=== PATIENT | female | born 1970 | race Caucasian/White ===

== ENCOUNTER 2018-05-27 11:41 | Inpatient (IN) ==
[2018-05-27 12:19] LABS: Basophils % 0.2 % (0.1-2.0); Eosinophils # 0.3 K/mm3 (0.0-0.4); Eosinophils % 1.7 % (0.1-12.0); Lymphocytes # 2.3 K/mm3 (0.7-4.5); Mean Corpuscular HGB Conc 23.2 g/dL (31.8-35.4); Mean Corpuscular Hemoglobin 13.9 pg (27.0-31.2); Mean Corpuscular Volume 59.9 fl (81-99); Mean Platelet Volume 5.8 fl (7.4-10.4); Monocytes # 0.5 K/mm3 (0.1-1.0); Monocytes % 2.6 % (1.7-9.3); Neutrophils # 14.8 K/mm3 (1.8-7.8); Neutrophils % 82.4 % (37.0-80.0); Red Blood Count 3.56 M/mm3 (4.20-5.40); Red Cell Distribution Width 22.2 % (11.5-17.5)
[2018-05-27 12:26] LABS: Albumin Level 2.9 gm/dL (3.4-5.0); Albumin/Globulin Ratio 0.5 (1.1-1.8); Bilirubin,Total 0.4 mg/dL (0.2-1.0); Calcium 9.1 mg/dL (8.5-10.1); Globulin 5.3 gm/dl (1.3-3.2); Total Protein,Serum 8.2 gm/dL (6.4-8.2)
--- NOTE | 2018-05-27 12:34 | Emergency Department Note ---
ED Disposition Clinical Impression: Pelvic mass Disposition: Admitted As Inpatient Condition on Discharge: Fair Instructions: DI for Acute Abdomen Referrals: Sonny Colmenares MD [Primary Care Provider] - Time of Disposition: 15:33 - Critical Care Critical Care Time: No Attestation: On 05/27/18, the high probability of a clinically significant, sudden or life threatening deterioration of the following system(s) required my full and direct attention, intervention and personal management. The time I documented below is in addition to time spent performing reported procedures but includes the following listed in this critical care notation. Medical Decision Making - Yehuda Inquiry Pt receiving controlled substance: No Vital Signs: 05/27/18 11:45 05/27/18 13:22 Temperature 98.0 F Temperature Source Oral Pulse Rate [Left Radial] 110 H 98 H Respiratory Rate 15 Blood Pressure [Right Arm] 151/77 H 125/66 Blood Pressure Mean [Right Arm] 101 85 Blood Pressure Source [Right Arm] Automatic Cuff Automatic Cuff Blood Pressure Position [Right Arm] Sitting Sitting 02 Sat by Pulse Oximetry 98 100 Oxygen Delivery Method Room Air Room Air - Lab Data Lab results reviewed: Yes: I reviewed the patient's lab results. Lab Results 05/27/18 12:05: WBC 18.0 H, RBC 3.56 L, Hgb 4.9 L*, Hct 21.3 L*, MCV 59.9 L, MCH 13.9 L*, MCHC 23.2 L, RDW 22.2 H, Plt Count 1373 H*, MPV 5.8 L, Neut % (Auto) 82.4 H, Lymph % (Auto) 13.0, [place] % (Auto) 2.6, Eos % (Auto) 1.7, Baso % (Auto) 0.2, Neut # (Auto) 14.8 H, Lymph # (Auto) 2.3, [place] # (Auto) 0.5, Eos # (Auto) 0.3, Baso # (Auto) 0.0, Total Counted 100, Neutrophils % (Manual) 88 H, Lymphocytes % (Manual) 8 L, Monocytes % (Manual) 2, Eosinophils % (Manual) 2, Platelet Estimate Marked increase, Hypochromasia 3+, Anisocytosis 3+, Microcytosis 3+, ESR > 120 H 05/27/18 12:05: Sodium 137, Potassium 5.0, Chloride 101, Carbon Dioxide 26, Anion Gap 15.0, BUN 11, Creatinine 0.86, Estimated Creat Clear 122, Estimated GFR 71, Est GFR ( Amer) 86, Glucose 140 H, Calcium 9.1, Total Bilirubin 0.4, AST 13 L, ALT 9 L, Alkaline Phosphatase 101, C-Reactive Protein 13.0 H, Total Protein 8.2, Albumin 2.9 L, Globulin 5.3 H, Albumin/Globulin Ratio 0.5 L, Amylase 45, Lipase 85 05/27/18 12:05: PT 11.2, INR 1.09, APTT 29.5 Result diagrams: 05/27/18 12:05 05/27/18 12:05 Orders (Tests/Meds): ED MEDICATIONS Discontinued Medications Generic Name Dose Route Start Last Admin Trade Name Freq PRN Reason Stop Dose Admin Diatrizoate Meglum/Diatrizoate Sod 30 ml 05/27/18 12:09 05/27/18 12:13 Gastrografin 66%-10% 30ml PO 05/27/18 12:10 30 ml ONCE ONE Administration Iopamidol 75 ml 05/27/18 14:36 05/27/18 14:39 [id number]; 75ml Vial IV 05/27/18 14:37 75 ml ONCE ONE Administration Protocol Sodium Chloride 10 ml 05/27/18 14:36 05/27/18 14:39 Rad-Saline Flush 10ml Syringe IV 05/27/18 14:37 10 ml ONCE ONE Administration ORDERS Category Date Time Status Type and Screen Stat BBK 05/27/18 15:[address] abdomen pelvis w con Stat Cat Scan 05/27/18 12:04 Taken Complete Blood Count Auto Diff Stat Lab 05/27/18 12:05 Results Erythrocyte Sedimentation Rate Stat Lab 05/27/18 12:05 Results Peripheral Smear Review Stat Lab 05/27/18 12:05 Results UA [Urinalysis and Microscopic] Stat Lab 05/27/18 15:15 Ordered - CT Data CT Scan: Abdomen, Pelvis Time Received: 15:[address] Reviewed: Yes: I have reviewed the patient's CT results, I discussed the CT results w/the radiologist Findings Narrative: Large pelvic mass most likely ovarian in origin though there is abnormality of the uterus - Physician Consults Reason -: Gynocological Eval/Care Comment/Response: Spoke with Dr. Frost he will see the patient later today on the floor Medical Decision Narrative: Patient with profound anemia 6 months of vaginal and uterine bleeding large pelvic mass. With Dr. Colmenares will admit the patient to the floor for transfusion and have gynecology to see these findings were discussed with the patient General Adult HPI - General Chief complaint: Abdominal Pain Stated complaint: growth lower abdomen Time Seen by Provider: 05/27/18 12:00 Mode of Arrival: Ambulatory Source of Information: Patient Limitations: No Limitations Description of Symptoms (Recalled from ER Triage Doc. by RN): Dr. Colmenares sent pt over for further workup for an abdominal mass and weight loss - History of Present Illness HPI narrative: Patient states approximately 6 months of an enlarging abdominal growth getting somewhat painful now patient states she is lost about 60 pounds this year her appetite is decreased she also noticed she is gradually been feeling weaker to the point now that she is weak with walking and has to stop as any shortness of breath or pain in the chest she has had about a whole year now with some slight vaginal bleeding and she is about 3 years postmenopausal loss of appetite no fever no chills patient saw in the office today with center to the ER for blood work and CT scan Location: abdomen Severity: moderate Severity scale (1-10): 3 Quality: dull Relieving factors: none Exacerbating factors: none Associated symptoms: malaise, weakness Treatments prior to arrival: none - Related Data Home Medications Medication Instructions Recorded Confirmed No Known Home Medications 05/27/18 05/27/18 Allergies Allergy/AdvReac Type Severity Reaction Status Date / Time No Known Allergies Allergy Verified 05/27/18 10:39 [facility] History I have reviewed the patient's past medical history: Yes Medical History: Denies:: Diabetes Mellitus Type 1, Diabetes Mellitus Type 2, Internal Pacemaker, Pulmonary Embolism Other Medical History: Reports: Sinus Problems. Denies: Arthritis, Thyroid Disease Other Surgeries: Yes: No Previous Surgery. No: Pacemaker Amputation: No Fractures: No - Social History Smoking Status: Never smoker Alcohol Intake: never Substance Use Type: denies use Occupational Status: employed - Psychiatric History Expresses thoughts of harming self/others: None Suicide Plan Description: No Plan ROS Obtained: Yes All systems reviewed & no additional complaints - Constitutional Constitutional: Reports malaise, Reports weakness, Reports weight loss - Eyes Eyes: Reports system reviewed and no additional complaints, except as docu - ENT Ears, Nose, Mouth, and Throat: Reports system reviewed and no additional complaints, except as docu - Cardiovascular Cardiovascular: Reports system reviewed and no additional complaints, except as docu - Respiratory Respiratory: Yes system reviewed and no additional complaints, except as docu - Gastrointestinal Gastrointestingal: Reports: abdominal pain, bloating - Genitourinary Female Genitourinary: Reports system reviewed and no additional complaints, except as docu, Reports abnormal vaginal bleeding - Musculoskeletal Musculoskeletal: Reports system reviewed and no additional complaints, except as docu - Integumentary/Breasts Skin/Breast: Reports system reviewed and no additional complaints, except as docu - Neurologic Neurologic: Reports system reviewed and no additional complaints, except as docu - Endocrine Endocrine: Reports system reviewed and no additional complaints, except as docu - Hematologic/Lymphatic Henatologic/Lymphatic: Reports system reviewed and no additional complaints, except as docu - Allergic/Immunologic Allergic/Immunologic: Reports system reviewed and no additional complaints, except as docu Physical Exam Patient is ambulatory to the emergency room without difficulty she appears well and in no distress - General General appearance: alert - Eye Eye exam: Present: normal appearance, PERRL, EOMI. Absent: scleral icterus, conjunctival redness, jaundice - ENT ENT exam: Present: normal exam, normal oropharynx, mucous membranes moist, TM's normal bilaterally, normal external ear exam - Neck Neck exam: Present: normal inspection, full ROM, trachea midline. Absent: meningismus, lymphadenopathy - Respiratory Respiratory exam: Present: normal lung sounds bilaterally. Absent: respiratory distress - Cardiovascular Cardiovascular exam: Present: regular rate, normal rhythm. Absent: JVD - Abdominal Exam Abdominal exam: Present: soft, normal bowel sounds, mass, other (Large mass palpated in the mid and lower abdomen nontender). Absent: tenderness, ascites, bruit, pulsatile mass, hernia - External exam: Present: normal external exam Speculum exam: Present: vaginal bleeding Bimanual exam: Present: other (There is a large well-circumscribed smooth diffuse pelvic mass no tenderness is appreciated) - Extremities Exam Extremities exam: Present: normal inspection, full ROM, normal capillary refill. Absent: calf tenderness - Back Exam Back exam: Present: normal inspection. Absent: tenderness - Neurological Exam Neurological exam: Present: alert, oriented X3, CN II-XII intact, normal gait. Absent: motor sensory deficit - Psychiatric Psychiatric exam: Present: normal affect, normal mood - Skin Skin exam: Present: warm, dry, intact, normal color - Lymphatic Lymphatic Findings: no adenopathy
[2018-05-27 12:35] LABS: Hematocrit 21.3 % (37.0-47.0); Hemoglobin 4.9 g/dL (12.2-16.2); Platelet Count 1373 K/mm3 (142-424)
[2018-05-27 12:40] LABS: Eosinophils % 2 % (0-3); Lymphocytes % 8 % (10-50); Monocytes % 2 % (2-9); Neutrophils % 88 % (42-76); Total Cells Counted 100
[2018-05-27 12:41] LABS: Anisocytosis 3+; Hypochromasia 3+
[2018-05-27 13:23] LABS: Erythrocyte Sedimentation Rate > 120 mm/hr (0-20)
[2018-05-27 14:10] LABS: Activated Partial Thrombo Time 29.5 seconds (23.6-34.0); INR 1.09 (0.9-1.1); Prothrombin Time 11.2 seconds (9.4-11.8)
[2018-05-27 15:25] LABS: Microscopic, Urine URINE MICROSCOPIC (MICROSCOPIC)
[2018-05-27 15:36] LABS: Appearance,Urine CLEAR (Clear); Bilirubin,Urine Negative (Negative); Blood, Urine 2+ (Negative); Color,Urine YELLOW (Yellow); Glucose,Urine (UA) Negative (Negative); Ketones,Urine Negative (Negative); Leukocyte Esterase,Urine Negative (Negative); Protein,Urine Negative (Negative); Specific Gravity, Urine 1.015 (1.005-1.030); Urobilinogen,Urine 0.2 EU/dl (0.2)
[2018-05-27 15:48] LABS: Bacteria,Urine Trace /lpf; Squamous Epithelial Cell,Urine Occasional #/hpf (0-5)
--- NOTE | 2018-05-27 18:01 | Consult Report ---
[facility] - CN: HPI - Data of Consult Consult date: 05/27/18 Requesting Physician: Sonny Colmenares MD Primary Care Provider: Sonny Colmenares MD - Consult Narrative Reason for consult: pelvic mass (This 47-year-old 3, para 2, AB 1 white female states that in the last year or so she has unintentionally lost 65 pounds and has had a decreased appetite. 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 She states that in spite of her weight loss, her abdomen has become more more distended, but she does not have significant abdominal pain. However, she does have worsening constipation. She presented to Dr. Colmenares's office earlier today, and was diagnosed with a large abdominal mass. She was sent to the emergency room for workup, where her hemoglobin was 4.9 g, and a pelvic/abdominal CT scan reported a 29 x 25 x 18 cm heterogeneous abdominal pelvic mass, containing both solid and cystic components. A small amount of ascites is also noted. Uterus is described as enlarged with an irregular appearance measuring 12 x 1 cm with a 5 cm soft tissue protrusion to its right. The large abdominopelvic mass is not felt to be associated with the uterus, but more likely a left ovarian mass. Another 4 x 2.4 cm area of isodensity is reported in the right posterior lateral pelvis, and could represent lymphadenopathy. Incidentally, gallstones are identified. I was asked to see the patient in gynecologic consultation and did so at approximately 1730 ton ight. She appears comfortable and is lying in bed. Although she is pale, she states that she has been that way for some time. Dr. Colmenares had ordered a transfusion, and the first unit of blood was just being done. Examination of the patient's abdomen revealed a large tense mass completely filling the pelvis and upper abdomen to the level of the diaphragm. The skin appears tense over this mass, but nontender to palpation. For the moment, I have foregone a pelvic examination. A pelvic ultrasound has been ordered by Dr. Colmenares, and have taken the liberty of ordering a CA125 tumor marker and transfusion to a total of 6 units of packed cells. I discussed with the patient, her , and her son the concern that this is likely a malignancy, which will require major surgery. They acknowledge understanding of the situation. I will continue to follow this patient and discuss further plans when her hemoglobin is at a more acceptable level. Thank you for requesting me.) History of present illness: Ms. Garay is a 47 year old female CC: Sonny Colmenares MD Review of Systems - *Neurologic Reports weakness [facility] History Medical History: Denies:: Cancer, Diabetes Mellitus Type 1, Diabetes Mellitus Type 2, Internal Pacemaker, MRSA, Pulmonary Embolism Other Medical History: Reports: Sinus Problems. Denies: Arthritis, Thyroid Disease Other Surgeries: Yes: No Previous Surgery, Other (teeth extraction). No: Cabrera roach Amputation: No Fractures: No - *Social History Educational Level: Attended College Smoking Status: Never smoker Alcohol Intake: never Substance Use Type: denies use Occupational Status: employed Household Members: spouse - Psychiatric History Expresses thoughts of harming self/others: None Suicide Plan Description: No Plan *Family Hx:: Diabetes, Kidney Disease Meds Home Medications Medication Instructions Recorded Confirmed Type No Known Home Medications 05/27/18 05/27/18 History Allergies Allergy/AdvReac Type Severity Reaction Status Date / Time No Known Allergies Allergy Verified 05/27/18 10:39 [facility] - Exam Vital signs: Temp Pulse Resp BP Pulse Ox 98.5 F 107 H 18 156/97 H 100 05/27/18 17:40 05/27/18 17:40 05/27/18 17:40 05/27/18 17:40 05/27/18 17:40 [facility] - Results - Labs CBC & Chem 7: 05/27/18 12:05 05/27/18 12:05 Labs: Short CBC 05/27/18 Range/Units 12:05 WBC 18.0 H (4.8-10.8) K/mm3 Hgb 4.9 L* (12.2-16.2) g/dL Hct 21.3 L* (37.0-47.0) % Plt Count 1373 H* (142-424) K/mm3 BMP 05/27/18 12:05 Sodium 137 Potassium 5.0 Chloride 101 Carbon Dioxide 26 BUN 11 Creatinine 0.86 Glucose 140 H Calcium 9.1 Liver Function 05/27/18 Range/Units 12:05 Total Bilirubin 0.4 (0.2-1.0) mg/dL AST 13 L (15-37) U/L ALT 9 L (12-78) U/L Alkaline Phosphatase 101 (46-116) U/L Albumin 2.9 L (3.4-5.0) gm/dL Urine 05/27/18 Range/Units 15:15 Urine Color Yellow (Yellow) Urine Appearance Clear (Clear) Urine pH 6.0 (5.0-8.5) Ur Specific [place] 1.015 (1.005-1.030) Urine Protein Negative (Negative) Urine Glucose (UA) Negative (Negative)
--- NOTE | 2018-05-27 19:10 | Pharmacy Consult Notes ---
[facility] Pharmacy VTE Monitoring - Patient Demographics Admission date: 05/27/18 Report Date: 05/27/18 Time: 19:10 Allergies/Adverse Reactions: Patient Allergies No Known Allergies Allergy (Verified 05/27/18 10:39) Height: 1.68 m Weight: 94.432 kg Patient Problems: Current Active Problems Pelvic mass (Acute) - VTE Risk Labs: VTE Related Lab Results Hgb 4.9 g/dL (12.2-16.2) L* 05/27/18 12:05 Hct 21.3 % (37.0-47.0) L* 05/27/18 12:05 Plt Count 1373 K/mm3 (142-424) H* 05/27/18 12:05 PT 11.2 seconds (9.4-11.8) 05/27/18 12:05 INR 1.09 (0.9-1.1) 05/27/18 12:05 APTT 29.5 seconds (23.6-34.0) 05/27/18 12:05 BUN 11 mg/dL (7-18) 05/27/18 12:05 Creatinine 0.86 mg/dL (0.55-1.02) 05/27/18 12:05 Estimated Creat Clear 122 mL/min (50-200) 05/27/18 12:05 Was VTE Risk Assessment Performed: Yes VTE Score: 1 VTE Risk Level: Very Low Risk Clinical Trial Participant: No - Prophylaxis VTE Prophylaxis Ordered?: Yes Types of VTE Prophylaxis: TEDS Knee High
[2018-05-28 10:25] LABS: Eosinophils # 0.2 K/mm3 (0.0-0.4); Lymphocytes # 1.5 K/mm3 (0.7-4.5); Mean Platelet Volume 6.6 fl (7.4-10.4); Monocytes # 0.5 K/mm3 (0.1-1.0)
[2018-05-28 10:26] LABS: Red Cell Distribution Width 26.2 % (11.5-17.5)
[2018-05-28 10:30] LABS: Basophils # 0.1 K/mm3 (0-0.2); Basophils % 0.3 % (0.1-2.0); Eosinophils % 0.9 % (0.1-12.0); Hematocrit 36.9 % (37.0-47.0); Lymphocytes % 7.4 % (10-50); Mean Corpuscular HGB Conc 29.2 g/dL (31.8-35.4); Mean Corpuscular Hemoglobin 21.7 pg (27.0-31.2); Mean Corpuscular Volume 74.3 fl (81-99); Monocytes % 2.4 % (1.7-9.3); Neutrophils # 17.8 K/mm3 (1.8-7.8); Neutrophils % 89.1 % (37.0-80.0); Red Blood Count 4.97 M/mm3 (4.20-5.40)
[2018-05-28 10:48] LABS: Hemoglobin 10.8 g/dL (12.2-16.2); Platelet Count 1045 K/mm3 (142-424)
[2018-05-28 10:53] LABS: Eosinophils % 1 % (0-3); Lymphocytes % 12 % (10-50); Monocytes % 1 % (2-9); Neutrophils % 86 % (42-76); Total Cells Counted 100
[2018-05-28 10:54] LABS: Anisocytosis 1+; Hypochromasia 2+
--- NOTE | 2018-05-28 11:41 | H&P/Discharge Summary ---
General - General Admission date:: 05/27/18 Discharge date: 05/28/18 *Admission Date: 05/27/18 *Chief complaint: abd mass *History of present illness: this wf was seen in pcp office and was noted to be pale and have abd mass and wt loss- she was sent to ed for eval-atient states approximately 6 months of an enlarging abdominal growth getting somewhat painful now patient states she is lost about 60 pounds this year her appetite is decreased she also noticed she is gradually been feeling weaker to the point now that she is weak with walking and has to stop as any shortness of breath or pain in the chest she has had about a whole year now with some slight vaginal bleeding and she is about 3 years postmenopausal loss of appetite no fever no chills patient saw in the office today with center to the ER for blood work and CT scan pt had pos ct and was noted to have extreme anemia and was admitted for blood transfusion and 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 Along the posterior right aspect of the uterus there is soft tissue protrusion. This measures approximately 5 cm. There is prominent low density changes of the endometrium at 3.4 cm. The large abdominal pelvic mass lies along the superior aspect of the uterus but is not felt to be emanating from the uterus. In the right posterior lateral pelvic area there is a 4 cm x 2.4 similar area of isodensity and could represent some fluid loculated in this area versus a hypodense area of enlarged lymph nodes. There is some stranding of the mesenteric fat along the upper abdomen anteriorly and along the descending colon. While this could be due to mesenteric congestion, early metastatic disease to the mesentery is also a consideration. There is a 16 mm soft tissue density along the anterior aspect of the mid mesenteric area anterior to the central aspect of the transverse colon. No acute bony anomaly IMPRESSION: 1. 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 There are both cystic and solid components and there is some ascites noted. There may be some enlarged lymph nodes in the right pelvic sidewall. There is some stranding of the mesenteric fat along the omentum with some nodular density noted in this area suspicious for metastatic disease 2. Enlarged uterus with prominent low density changes centrally and at phytic density along the posterior aspect of the uterus. This may be related to fibroid involvement. Uterine carcinoma is also a consideration. 3. Cholelithiasis with distended gallbladder [facility] History I have reviewed the patient's past medical history: Yes Medical History: Denies:: Cancer, Diabetes Mellitus Type 1, Diabetes Mellitus Type 2, Internal Pacemaker, MRSA, Pulmonary Embolism Other Medical History: Reports: Sinus Problems. Denies: Arthritis, Thyroid Disease Other Surgeries: Yes: No Previous Surgery, Other (teeth extraction). No: Pacemaker Amputation: No Fractures: No - *Social History Educational Level: Attended College Smoking Status: Never smoker Alcohol Intake: never Substance Use Type: denies use Occupational Status: employed Household Members: spouse - Psychiatric History Expresses thoughts of harming self/others: None Suicide Plan Description: No Plan *Family Hx:: Diabetes, Kidney Disease Review of Systems - Review of Systems Review of systems:: pertinent systems reviewed and negative unless documented below - Constitutional Reports fatigue, Reports weight loss, Denies fever(s) - Eyes Denies change in vision - ENT Denies sore throat - *Cardiovascular Denies chest pain at rest - *Respiratory Denies cough - *Gastrointestinal Reports abdominal pain, Denies black, tarry stools, Denies vomiting - *Genitourinary Reports abnormal vaginal bleeding, Denies blood in urine - *Musculoskeletal Denies joint pain, Denies joint swelling - Integumentary/Breasts Denies rash - *Neurologic Reports weakness, Denies seizure-like activity, Denies headache(s) - Psychiatric Denies anxiety Exam Vital signs and Labs for Last 24 Hours: Temp Pulse Resp BP Pulse Ox 98.2 F 92 H 20 154/94 H 98 05/28/18 09:50 05/28/18 09:50 05/28/18 09:50 05/28/18 09:50 05/28/18 09:50 Laboratory Results - last 24 hr 05/27/18 12:05: WBC 18.0 H, RBC 3.56 L, Hgb 4.9 L*, Hct 21.3 L*, MCV 59.9 L, MCH 13.9 L*, MCHC 23.2 L, RDW 22.2 H, Plt Count 1373 H*, MPV 5.8 L, Neut % (Auto) 82.4 H, Lymph % (Auto) 13.0, [place] % (Auto) 2.6, Eos % (Auto) 1.7, Baso % (Auto) 0.2, Neut # (Auto) 14.8 H, Lymph # (Auto) 2.3, [place] # (Auto) 0.5, Eos # (Auto) 0.3, Baso # (Auto) 0.0, Total Counted 100, Neutrophils % (Manual) 88 H, Lymphocytes % (Manual) 8 L, Monocytes % (Manual) 2, Eosinophils % (Manual) 2, Platelet Estimate Marked increase, Hypochromasia 3+, Anisocytosis 3+, Microcytosis 3+, ESR > 120 H 05/27/18 12:05: Sodium 137, Potassium 5.0, Chloride 101, Carbon Dioxide 26, Anion Gap 15.0, BUN 11, Creatinine 0.86, Estimated Creat Clear 122, Estimated GFR 71, Est GFR ( Amer) 86, Glucose 140 H, Calcium 9.1, Total Bilirubin 0.4, AST 13 L, ALT 9 L, Alkaline Phosphatase 101, C-Reactive Protein 13.0 H, Total Protein 8.2, Albumin 2.9 L, Globulin 5.3 H, Albumin/Globulin Ratio 0.5 L, Amylase 45, Lipase 85 05/27/18 12:05: PT 11.2, INR 1.09, APTT 29.5 05/27/18 15:00: Blood Type A Positive, Antibody Screen Negative, Crossmatch ([facility]) See Detail 05/27/18 15:15: Urine Color Yellow, Urine Appearance Clear, Urine pH 6.0, Ur Specific [place] 1.015, Urine Protein Negative, Urine Glucose (UA) Negative, Urine Ketones Negative, Urine Blood 2+, Urine Nitrate Negative, Urine Bilirubin Negative, Urine Urobilinogen 0.2, Ur Leukocyte Esterase Negative, Urine RBC 3-5, Urine WBC 3-5, Ur Squamous Epith Cells Occasional, Urine Bacteria Trace 05/27/18 16:35: Blood Type Confirm A Positive 05/28/18 09:50: WBC 20.0 H, RBC 4.97 D, Hgb 10.8 L D, Hct 36.9 L, MCV 74.3 L, MCH 21.7 L D, MCHC 29.2 L D, RDW 26.2 H*, Plt Count 1045 H*, MPV 6.6 L, Neut % (Auto) 89.1 H, Lymph % (Auto) 7.4 L, [place] % (Auto) 2.4, Eos % (Auto) 0.9, Baso % (Auto) 0.3, Neut # (Auto) 17.8 H, Lymph # (Auto) 1.5, [place] # (Auto) 0.5, Eos # (Auto) 0.2, Baso # (Auto) 0.1, Total Counted 100, Neutrophils % (Manual) 86 H, Lymphocytes % (Manual) 12, Monocytes % (Manual) 1 L, Eosinophils % (Manual) 1, Platelet Estimate Marked increase, Hypochromasia 2+, Anisocytosis 1+, Microcytosis 1+ I & O for Last 24 hours: Intake & Output 05/25/18 05/26/18 05/27/18 05/28/18 11:59 11:59 11:59 11:59 Intake Total 3547 / 3547 Balance 3547 / 3547 Weight 207 lb 208 lb 3 oz - Constitutional no acute distress, obese - *Routine HEENT Exam Head: Present: normocephalic Eye: Present: EOMI, PERRL. Absent: conjunctival icterus ENT: Present: mucous membranes dry - *Routine Neck Exam Present: supple. Absent: JVD - *Routine Respiratory Exam Present: CTA bilaterally - *Routine Cardiovascular Exam Present: RRR, murmur - *Routine Abdominal Exam Present: soft, tenderness, mass - *Routine Extremities Exam Present: full ROM. Absent: calf tenderness - Routine Back/Spine/Pelvis Exam Back/Spine: Absent: CVA tenderness - *Routine Skin Exam Present: intact - *Routine Neurological Exam Present: CN II-XII intact - Routine Psychiatric Exam Present: normal affect Hospital Course Hospital Course: pt was admitted and had 6 u prbc with good effect on pt and increased h/h - she was seen by dr rene-son for consult: pelvic mass (This 47-year-old 3, para 2, AB 1 white female states that in the last year or so she has unintentionally lost 65 pounds and has had a decreased appetite. 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 She states that in spite of her weight loss, her abdomen has become more more distended, but she does not have significant abdominal pain. However, she does have worsening constipation. She presented to Dr. Colmenares's office earlier today, and was diagnosed with a large abdominal mass. She was sent to the emergency room for workup, where her hemoglobin was 4.9 g, and a pelvic/abdominal CT scan reported a 29 x 25 x 18 cm heterogeneous abdominal pelvic mass, containing both solid and cystic components. A small amount of ascites is also noted. Uterus is described as enlarged with an irregular appearance measuring 12 x 1 cm with a 5 cm soft tissue protrusion to its right. The large abdominopelvic mass is not felt to be associated with the uterus, but more likely a left ovarian mass. Another 4 x 2.4 cm area of isodensity is reported in the right posterior lateral pelvis, and could represent lymphadenopathy. Incidentally, gallstones are identified. I was asked to see the patient in gynecologic consultation and did so at approximately 1730 tonight. She appears comfortable and is lying in bed. Although she is pale, she states that she has been that way for some time. Dr. Colmenares had o rdered a transfusion, and the first unit of blood was just being done. Examination of the patient's abdomen revealed a large tense mass completely filling the pelvis and upper abdomen to the level of the diaphragm. The skin appears tense over this mass, but nontender to palpation. For the moment, I have foregone a pelvic examination. A pelvic ultrasound has been ordered by Dr. Colmenares, and have taken the liberty of ordering a CA125 tumor marker and transfusion to a total of 6 units of packed cells. I discussed with the patient, her , and her son the concern that this is likely a malignancy, which will require major surgery. They acknowledge understanding of the situation. I will continue to follow this patient and discuss further plans when her hemoglobin is at a more acceptable level. 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 Results Labs on day of discharge: Labs from last 24 hours 05/28/18 05/27/18 05/27/18 09:50 16:35 15:15 WBC 20.0 H RBC 4.97 D Hgb 10.8 L D Hct 36.9 L MCV 74.3 L MCH 21.7 L D MCHC 29.2 L D RDW 26.2 H* Plt Count 1045 H* MPV 6.6 L Neut % (Auto) 89.1 H Lymph % (Auto) 7.4 L [place] % (Auto) 2.4 Eos % (Auto) 0.9 Baso % (Auto) 0.3 Neut # (Auto) 17.8 H Lymph # (Auto) 1.5 [place] # (Auto) 0.5 Eos # (Auto) 0.2 Baso # (Auto) 0.1 Total Counted 100 Neutrophils % (Manual) 86 H Lymphocytes % (Manual) 12 Monocytes % (Manual) 1 L Eosinophils % (Manual) 1 Platelet Estimate Marked increase Hypochromasia 2+ Anisocytosis 1+ Microcytosis 1+ ESR PT INR APTT Sodium Potassium Chloride Carbon Dioxide Anion Gap BUN Creatinine Estimated Creat Clear Estimated GFR Est GFR ( Amer) Glucose Calcium Total Bilirubin AST ALT Alkaline Phosphatase C-Reactive Protein Total Protein Albumin Globulin Albumin/Globulin Ratio Amylase Lipase Urine Color Yellow Urine Appearance Clear Urine pH 6.0 Ur Specific [place] 1.015 Urine Protein Negative Urine Glucose (UA) Negative Urine Ketones Negative Urine Blood 2+ Urine Nitrate Negative Urine Bilirubin Negative Urine Urobilinogen 0.2 Ur Leukocyte Esterase Negative Urine RBC 3-5 Urine WBC 3-5 Ur Squamous Epith Cells Occasional Urine Bacteria Trace Blood Type Blood Type Confirm A Positive Antibody Screen Crossmatch ([facility]) 05/27/18 05/27/18 05/27/18 15:00 12:05 12:05 WBC RBC Hgb Hct MCV MCH MCHC RDW Plt Count MPV Neut % (Auto) Lymph % (Auto) [place] % (Auto) Eos % (Auto) Baso % (Auto) Neut # (Auto) Lymph # (Auto) [place] # (Auto) Eos # (Auto) Baso # (Auto) Total Counted Neutrophils % (Manual) Lymphocytes % (Manual) Monocytes % (Manual) Eosinophils % (Manual) Platelet Estimate Hypochromasia Anisocytosis Microcytosis ESR PT 11.2 INR 1.09 APTT 29.5 Sodium 137 Potassium 5.0 Chloride 101 Carbon Dioxide 26 Anion Gap 15.0 BUN 11 Creatinine 0.86 Estimated Creat Clear 122 Estimated GFR 71 Est GFR ( Amer) 86 Glucose 140 H Calcium 9.1 Total Bilirubin 0.4 AST 13 L ALT 9 L Alkaline Phosphatase 101 C-Reactive Protein 13.0 H Total Protein 8.2 Albumin 2.9 L Globulin 5.3 H Albumin/Globulin Ratio 0.5 L Amylase 45 Lipase 85 Urine Color Urine Appearance Urine pH Ur Specific [place] Urine Protein Urine Glucose (UA) Urine Ketones Urine Blood Urine Nitrate Urine Bilirubin Urine Urobilinogen Ur Leukocyte Esterase Urine RBC Urine WBC Ur Squamous Epith Cells Urine Bacteria Blood Type A Positive Blood Type Confirm Antibody Screen Negative Crossmatch ([facility]) See Detail 05/27/18 12:05 WBC 18.0 H RBC 3.56 L Hgb 4.9 L* Hct 21.3 L* MCV 59.9 L MCH 13.9 L* MCHC 23.2 L RDW 22.2 H Plt Count 1373 H* MPV 5.8 L Neut % (Auto) 82.4 H Lymph % (Auto) 13.0 [place] % (Auto) 2.6 Eos % (Auto) 1.7 Baso % (Auto) 0.2 Neut # (Auto) 14.8 H Lymph # (Auto) 2.3 [place] # (Auto) 0.5 Eos # (Auto) 0.3 Baso # (Auto) 0.0 Total Counted 100 Neutrophils % (Manual) 88 H Lymphocytes % (Manual) 8 L Monocytes % (Manual) 2 Eosinophils % (Manual) 2 Platelet Estimate Marked increase Hypochromasia 3+ Anisocytosis 3+ Microcytosis 3+ ESR > 120 H PT INR APTT Sodium Potassium Chloride Carbon Dioxide Anion Gap BUN Creatinine Estimated Creat Clear Estimated GFR Est GFR ( Amer) Glucose Calcium Total Bilirubin AST ALT Alkaline Phosphatase C-Reactive Protein Total Protein Albumin Globulin Albumin/Globulin Ratio Amylase Lipase Urine Color Urine Appearance Urine pH Ur Specific [place] Urine Protein Urine Glucose (UA) Urine Ketones Urine Blood Urine Nitrate Urine Bilirubin Urine Urobilinogen Ur Leukocyte Esterase Urine RBC Urine WBC Ur Squamous Epith Cells Urine Bacteria Blood Type Blood Type Confirm Antibody Screen Crossmatch ([facility]) DS: Diagnosis - Discharge Diagnosis (1) Pelvic mass Status: Acute (2) Obesity (BMI 30.0-34.9) Status: Acute (3) Cholelithiasis Status: Acute (4) Anemia Status: Acute Discharge Medications - Medications for Discharge Home Medication List at Discharge: No Action No Known Home Medications Disposition Disposition: Home, Self-Care
== END 2018-05-28 14:05 | disposition home or self-care (01) ==
LOC: ER 11:41 → 2ND 15:33
PROVIDERS: ADMIT Emergency Medicine; ATTEND Emergency Medicine
CPT/HCPCS: 36415; 71020; 71046; 74177; 76856; 80053; 81001; 82150; 83690; 85007; 85025; 85610; 85651; 85730; 86140; 86316; 86850; 99284; P9016; Q9967